=== PATIENT | female | born 1985 | race Two or more races ===

== ENCOUNTER 2017-10-25 21:04 | Emergency (ER) | payer MEDICAID ==
[~2017-10-25] VITALS: Ht 160 cm; Wt 71.7 kg
[2017-10-25] MEDS ORDERED: ALBUTEROL SULF 2.5 MG/0.5ML(0.5%) NEB SOLN NEB ONE (21:15)
[2017-10-25] MEDS ORDERED: IPRATROPIUM BROM 0.5 MG/2.5ML INH SOL NEB ONE (21:15)
[2017-10-26 01:09] VITALS: BP 129/87
[2017-10-26] MEDS ORDERED: ALBUTEROL SULF 2.5 MG/0.5ML(0.5%) NEB SOLN NEB ONE (01:30)
[2017-10-26] MEDS ORDERED: IPRATROPIUM BROM 0.5 MG/2.5ML INH SOL NEB ONE (01:30)
== END 2017-10-26 01:50 | disposition home or self-care (01) ==
LOC: ER 21:04
DX: J45.901 Unspecified asthma with (acute) exacerbation (principal); R06.2 Wheezing
CPT/HCPCS: 71010; 94640